=== PATIENT | male | born 1965 | race Caucasian/White ===

== ENCOUNTER 2017-02-24 09:26 | Inpatient (IN) | payer OTHER ==
[2017-02-24 10:02] VITALS: BMI 22.5
--- NOTE | 2017-02-24 13:15 | HP ---
COWS - Scale Resting Pulse: 2= [place] 101-120 Sweatin=Flushed/Facial Moisture Restless Observation: 3= Extraneous Movement Pupil Size: 2= Moderately Dilated Bone or Joint Aches: 2= Severe Diffuse Aches Runny Nose/ Eye Tearin= Runny Nose/Eyes GI Upset > 30mins: 2= Nausea/Diarrhea Tremor Observation: 2= Slight Tremor Visible Yawning Observation: 1= 1-2x During Session Anxiety or Irritability: 2=Irritable/Anxious Goose Flesh Skin: 3=Piloerection COWS Score: 23 CIWA Score - CIWA Score Nausea/Vomitin-Mild Nausea/No Vomiting Muscle Tremors: 4-Moderate,w/Arms Extend Anxiety: 3 Agitation: 4-Moderately Restless Paroxysmal Sweats: 3 Orientation: 0-Oriented Tacttile Disturbances: 0-None Auditory Disturbances: 0-None Visual Disturbances: 0-None Headache: 1-Very Mild CIWA-Ar Total Score: 16 Admission ROS BHS - HPI Chief Complaint: I am here to detox and maybe rehab. Allergies/Adverse Reactions: Allergies Allergy/AdvReac Type Severity Reaction Status Date / Time No Known Allergies Allergy Verified 02/24/17 10:37 History of Present Illness: pt is a 52yr old male with a history of heroin and alcohol dependence seeking detox for treatment. Exam Limitations: No Limitations - Ebola screening Have you traveled outside of the country in the last 21 days: No Have you had contact with anyone from an Ebola affected area: No Have you been sick,other than usual withdrawal symptoms: No Do you have a fever: No - Review of Systems Constitutional: Chills, Diaphoresis, Loss of Appetite, Night Sweats, Weight Stable, Unintentional Wgt. Loss EENT: reports: Tearing, Mouth Swelling Respiratory: reports: Cough Cardiac: reports: No Symptoms Reported GI: reports: Diarrhea, Nausea, Poor Appetite, Poor Fluid Intake, Vomiting, Indigestion : reports: No Symptoms Reported Musculoskeletal: reports: No Symptoms Reported, Back Pain, Joint Pain Integumentary: reports: Flushing, Sweating Neuro: reports: Headache, Tingling, Tremors Endocrine: reports: Excessive Sweating, Flushing, Intolerance to Cold, Intolerance to Heat Hematology: reports: No Symptoms Reported Psychiatric: reports: Judgement Intact, Mood/Affect Appropiate, Orientated x3, Agitated, Anxious Other Systems: Reviewed and Negative Patient History - Patient Medical History Hx Anemia: No Hx Asthma: No Hx Chronic Obstructive Pulmonary Disease (COPD): No Hx Cancer: No Hx Cardiac Disorders: No Hx Congestive Heart Failure: No Hx Hypertension: No Hx Hypercholesterolemia: No Hx Pacemaker: No HX Cerebrovascular Accident: No Hx Seizures: No Hx Dementia: No Hx Diabetes: No Hx Gastrointestinal Disorders: No Hx Liver Disease: No Hx Genitourinary Disorders: No Hx Sexually Transmitted Disorders: No Hx Renal Disease (ESRD): No Hx Thyroid Disease: No Hx Human Immunodeficiency Virus (HIV): No Hx Hepatitis C: No Hx Depression: No Hx Suicide Attempt: No Hx Bipolar Disorder: No Hx Schizophrenia: No Other Medical History: anxiety/insomnia - Patient Surgical History Past Surgical History: No Hx Neurologic Surgery: No Hx Cataract Extraction: No Hx Cardiac Surgery: No Hx Lung Surgery: No Hx Breast Surgery: No Hx Breast Biopsy: No Hx Abdominal Surgery: No Hx Appendectomy: No Hx Cholecystectomy: No Hx Genitourinary Surgery: No Hx Section: No Hx Orthopedic Surgery: No - PPD History Previous Implant?: Yes Documented Results: Negative w/o proof Implanted On Prior R Admission?: Yes PPD to be Administered?: Yes - Reproductive History Patient is a Female of Child Bearing Age (11 -55 yrs old): No - Smoking Cessation Smoking history: Current every day smoker Have you smoked in the past 12 months: Yes Aproximately how many cigarettes per day: 20 Cigars Per Day: 0 Hx Chewing Tobacco Use: No Initiated information on smoking cessation: Yes 'Breaking Loose' booklet given: 02/24/17 - Substance & Tx. History Hx Alcohol Use: Yes Hx Substance Use: Yes Substance Use Type: Alcohol, Cocaine, Prescribed, Tranquilizers Hx Substance Use Treatment: Yes (last detox [facility] a year ago) - Substances Abused Heroin Route: Inhalation Frequency: Daily Amount used: 10 bags Age of first use: 27 Date of Last Use: 02/23/17 Alcohol Route: Oral Frequency: Daily Amount used: beer(8-40 oz) Age of first use: 14 Date of Last Use: 02/24/17 Alprazolam (Xanax) Route: Oral Frequency: Daily Amount used: 3 stiks Age of first use: 42 Date of Last Use: 02/21/17 Benzodiazepine (Klonopin) Route: Oral Frequency: Daily Amount used: 4mg Age of first use: 38 Date of Last Use: 02/21/17 Family Disease History - Family Disease History Family Disease History: [place]: Father (), Mother () Admission Physical Exam [facility] - Vital Signs Vital Signs: Vital Signs - 24 hr 02/24/17 09:59 Temperature 97.5 F L Pulse Rate 120 H Respiratory 18 Rate Blood Pressure 150/96 - Physical General Appearance: Yes: Appropriately Dressed, Moderate Distress, Tremorous, Irritable, Sweating, Anxious HEENTM: Yes: Hearing grossly Normal, Normal Voice Respiratory: Yes: Lungs Clear, Normal Breath Sounds, No Respiratory Distress Neck: Yes: No masses,lesions,Nodules Breast: Yes: Within Normal Limits Cardiology: Yes: Regular Rhythm, Regular Rate, S1, S2 Abdominal: Yes: Normal Bowel Sounds, Non Tender Genitourinary: Yes: Within Normal Limits Back: Yes: Normal Inspection Musculoskeletal: Yes: full range of Motion Extremities: Yes: Normal Capillary Refill, Normal Inspection, Tremors Neurological: Yes: Fully Oriented, Alert, Normal Response Integumentary: Yes: Normal Color, Diaphoresis Lymphatic: Yes: Within Normal Limits - Diagnostic (1) Opioid dependence with withdrawal Current Visit: Yes Status: Chronic (2) Alcohol dependence with withdrawal Current Visit: Yes Status: Chronic Qualifiers: Complication of substance-induced condition: uncomplicated (3) Nicotine dependence Current Visit: Yes Status: Chronic Qualifiers: Nicotine product type: cigarettes Substance use status: uncomplicated Qualified Code(s): F17.210 - Nicotine dependence, cigarettes, uncomplicated; F17.210 - Nicotine dependence, cigarettes, uncomplicated (4) Psoriasis Current Visit: Yes Status: Chronic Comment: SCALP AND FACE, NO CURRENT TREATMENT Cleared for Admission [facility] - Detox or Rehab [facility] Level of Care: Medically Managed Detox Regimen/Protocol: Methadone/Librium [facility] Breath Alcohol Content Breath Alcohol Content: 0.060 Urine Pregancy Test - Result Urine Test Results: Negative- NO Line Present Urine Drug Screen - Results Drug Screen Negative: No Urine Drug Screen Results: OPI-Opiates, MTD-Methadone
[2017-02-24] MEDS ORDERED: guaiFENesin/D-METHORPHAN HB 10 ML UNIT-DOSE CUPS PO PRN (13:19)
[2017-02-24] MEDS ORDERED: chlordiazePOXIDE HCL 25 MG CAPSULE PO PRN (13:19)
[2017-02-24] MEDS ORDERED: MAGNESIUM HYDROX 2400MG/30ML ORAL SUSPENSION 30 ML CUP PO PRN (13:19)
[2017-02-24] MEDS ORDERED: MAGNESIUM CITRATE 300 ML BOTTLE PO PRN (13:19)
[2017-02-24] MEDS ORDERED: MENTHOL/PHENOL 1 EACH UD MM PRN (13:19)
[2017-02-24] MEDS ORDERED: LOPERAMIDE HCL 2 MG CAPSULE PO PRN (13:19)
[2017-02-24] MEDS ORDERED: diphenhydrAMINE HCL 50 MG CAPSULE PO PRN (13:19)
[2017-02-24] MEDS ORDERED: MAG HYDROX/AL HYDROX/SIMETH 30 ML UNIT-DOSE CUP PO PRN (13:19)
[2017-02-24] MEDS ORDERED: P-EPHED 60MG/TRIPROLIDI 2.5MG TABLET PO PRN (13:19)
[2017-02-24] MEDS ORDERED: ACETAMINOPHEN 325 MG TABLET (FP) PO PRN (13:19)
[2017-02-24] MEDS ORDERED: NICOTINE POLACRILEX 4 MG GUM BUC PRN (13:19)
[2017-02-24] MEDS ORDERED: chlordiazePOXIDE HCL 25 MG CAPSULE PO ONE (13:44)
[2017-02-24] MEDS ORDERED: METHADONE HCL 10 MG TABLET (FOR DETOX USE ONLY) PO ONE ×2 (13:45→23:00)
[2017-02-24] MEDS: FLUOCINONIDE 0.05% CREAM (15 GM TUBE) TP SCH ×3 (16:08→22:32)
[2017-02-24] MEDS: chlordiazePOXIDE HCL 25 MG CAPSULE PO SCH ×2 (17:22→22:30)
[2017-02-24 17:47] LABS: MCH 31.8 pg (25.7-33.7); MCHC 33.1 g/dl (32.0-35.9); MEAN CELL VOLUME 96.3 fl (80-96); MEAN PLT VOLUME 8.4 fl (7.5-11.1); PLATELET COUNT 275 K/MM3 (134-434); WHITE BLOOD COUNT 11.1 K/mm3 (4.0-10.0)
[2017-02-24 18:09] LABS: URINE APPEARANCE SLCLOUDY; URINE BILIRUBIN NEGATIVE (NEGATIVE); URINE BLOOD NEGATIVE (NEGATIVE); URINE COLOR YELLOW; URINE GLUCOSE (UA) NEGATIVE (NEGATIVE); URINE KETONE NEGATIVE (NEGATIVE); URINE NITRITE NEGATIVE (NEGATIVE); URINE PROTEIN NEGATIVE (NEGATIVE); URINE UROBILINOGEN NEGATIVE mg/dL (0.2-1.0)
[2017-02-24 18:14] LABS: ALBUMIN 4.5 g/dl (3.4-5.0); ANION GAP 15 (8-16); CALCIUM 9.2 mg/dL (8.5-10.1); CO2 23 mmol/L (21-32); GLUCOSE,RANDOM 91 mg/dL (74-106); SGOT/AST 55 U/L (15-37); SGPT/ALT 33 U/L (12-78)
[2017-02-24 18:16] LABS: ALK PHOS 89 U/L (45-117); TOT PROT 8.2 g/dl (6.4-8.2)
[2017-02-24 21:25] LABS: URINE LEUK ESTERASE Negative (NEGATIVE)
[2017-02-24] MEDS: THIAMINE HCL 100 MG TABLET (FP) PO SCH (22:30)
[2017-02-24] MEDS: cloNIDine HCL 0.1 MG TABLET PO SCH (22:31)
[2017-02-24] MEDS: IBUPROFEN 400 MG TABLET (FP) PO PRN (23:35)
[2017-02-24] MEDS ORDERED: LIDOCAINE HCL 5% TOP OINTMENT 50 GM TUBE TP ONE (23:48)
--- NOTE | 2017-02-25 00:01 | PN ---
BHS Progress Note Note: Pt. spilled hot water on his left hand. Pt. was assessed on the unit. Left thumb and inner aspect is reddened. Skin intact with no blisters noted. Pt. rates pain 9/10. Plan: clean area with cool water and soap Apply ice Topical lidocaine IBU prn.
[2017-02-25] MEDS: chlordiazePOXIDE HCL 25 MG CAPSULE PO SCH ×4 (05:28→22:27)
--- NOTE | 2017-02-25 09:51 | EKG ---
Test Reason : Blood Pressure : / mmHG Vent. Rate : 101 BPM Atrial Rate : 101 BPM P-R Int : 124 ms QRS Dur : 082 ms QT Int : 334 ms P-R-T Axes : 041 067 038 degrees QTc Int : 433 ms SINUS TACHYCARDIA NO PREVIOUS ECGS AVAILABLE Confirmed by MICA MCLEAN MD ([id number]) on 02/25/2017 9:51:30 AM Referred By: James Nye Confirmed By:MICA MCLEAN MD
[2017-02-25] MEDS ORDERED: METHADONE HCL 10 MG TABLET (FOR DETOX USE ONLY) PO SCH (10:00)
[2017-02-25] MEDS: cloNIDine HCL 0.1 MG TABLET PO SCH ×2 (10:14→22:26)
[2017-02-25] MEDS: PRENATAL VITAMINS W/ FOLIC ACID TABLET (FP) PO SCH (10:14)
[2017-02-25] MEDS: FLUOCINONIDE 0.05% CREAM (15 GM TUBE) TP SCH ×4 (10:14→22:27)
[2017-02-25] MEDS: NICOTINE 21 MG/24 HOURS TOPICAL PATCH TD SCH (10:14)
[2017-02-25] MEDS: RANITIDINE HCL 150 MG TABLET (FP) PO SCH ×2 (11:09→22:26)
--- NOTE | 2017-02-25 11:52 | PN ---
S CIWA - CIWA Score Nausea/Vomitin-No Nausea/No Vomiting Muscle Tremors: 4-Moderate,w/Arms Extend Anxiety: 3 Agitation: 4-Moderately Restless Paroxysmal Sweats: 1-Minimal Palms Moist Orientation: 0-Oriented Tacttile Disturbances: 3-Moderate Itch/Numb/Burn Auditory Disturbances: 0-None Visual Disturbances: 0-None Headache: 0-None Present CIWA-Ar Total Score: 15 BHS COWS - Scale Resting Pulse: 1= [place] 81-100 Sweatin= Chills/Flushing Restless Observation: 3= Extraneous Movement Pupil Size: 0= Normal to Room Light Bone or Joint Aches: 4=Acute Joint/Muscle Pain Runny Nose/ Eye Tearin= Nasal Congestion GI Upset > 30mins: 1= Stomach Cramp Tremor Observation of Outstretched Hands: 1= Tremor [place], Not Seen Yawning Observation: 2= >3x During Session Anxiety or Irritability: 2=Irritable/Anxious Goose Flesh Skin: 0=Smooth Skin COWS Score: 16 [facility] Progress Note (SOAP) Subjective: ANXIETY,TREMORS,SWEATS,HEARTBURN-HX GERD. Objective: 02/25/17 11:50 Vital Signs Temperature 97.7 F 02/25/17 09:55 Pulse Rate 92 H 02/25/17 09:55 Respiratory Rate 18 02/25/17 09:55 Blood Pressure 94/59 02/25/17 09:55 O2 Sat by Pulse Oximetry (%) Laboratory Last Values WBC 11.1 K/mm3 (4.0-10.0) H D 02/24/17 13:00 RBC 4.36 M/mm3 (4.00-5.60) 02/24/17 13:00 Hgb 13.9 GM/dL (11.7-16.9) 02/24/17 13:00 Hct 41.9 % (35.4-49) 02/24/17 13:00 MCV 96.3 fl (80-96) H 02/24/17 13:00 MCH 31.8 pg (25.7-33.7) 02/24/17 13:00 MCHC 33.1 g/dl (32.0-35.9) 02/24/17 13:00 RDW 15.0 % (11.9-15.9) 02/24/17 13:00 Plt Count 275 K/MM3 (134-434) D 02/24/17 13:00 MPV 8.4 fl (7.5-11.1) 02/24/17 13:00 Sodium 132 mmol/L (136-145) L 02/24/17 13:00 Potassium 3.4 mmol/L (3.5-5.1) L 02/24/17 13:00 Chloride 94 mmol/L (98-107) L 02/24/17 13:00 Carbon Dioxide 23 mmol/L (21-32) 02/24/17 13:00 Anion Gap 15 (8-16) 02/24/17 13:00 BUN 10 mg/dL (7-18) D 02/24/17 13:00 Creatinine 1.0 mg/dL (0.7-1.3) D 02/24/17 13:00 Creat Clearance w eGFR > 60 (>60) 02/24/17 13:00 Random Glucose 91 mg/dL (74-106) 02/24/17 13:00 Calcium 9.2 mg/dL (8.5-10.1) 02/24/17 13:00 Total Bilirubin 1.0 mg/dL (0.2-1.0) 02/24/17 13:00 AST 55 U/L (15-37) H D 02/24/17 13:00 ALT 33 U/L (12-78) D 02/24/17 13:00 Alkaline Phosphatase 89 U/L (45-117) D 02/24/17 13:00 Total Protein 8.2 g/dl (6.4-8.2) D 02/24/17 13:00 Albumin 4.5 g/dl (3.4-5.0) D 02/24/17 13:00 Urine Color Yellow 02/24/17 15:00 Urine Appearance Slcloudy 02/24/17 15:00 Urine pH 5.0 (5.0-8.0) 02/24/17 15:00 Ur Specific [place] 1.025 (1.005-1.025) 02/24/17 15:00 Urine Protein Negative (NEGATIVE) 02/24/17 15:00 Urine Glucose (UA) Negative (NEGATIVE) 02/24/17 15:00 Urine Ketones Negative (NEGATIVE) 02/24/17 15:00 Urine Blood Negative (NEGATIVE) 02/24/17 15:00 Urine Nitrite Negative (NEGATIVE) 02/24/17 15:00 Urine Bilirubin Negative (NEGATIVE) 02/24/17 15:00 Urine Urobilinogen Negative mg/dL (0.2-1.0) 02/24/17 15:00 Ur Leukocyte Esterase Negative (NEGATIVE) 02/24/17 15:00 RPR Titer Nonreactive (NONREACTIVE) 02/24/17 13:00 K+ = 3.4 Assessment: 02/25/17 11:51 WITHDRAWAL SX BORDERLINE HYPOKALEMIA Plan: CONTINUE DETOX
[2017-02-25] MEDS ORDERED: POTASSIUM CHLORIDE TABS 20 MEQ TABLET.ER (FP) PO ONE (12:16)
--- NOTE | 2017-02-25 14:06 | CONSULT ---
[facility] Psychiatric Consult - Data Date of interview: 02/25/17 Admission source: [facility] Identifying data: Another admission to [facility] for this 52 y/o male seeking detox treatment on for alcohol,heroin and benzodiazepine dependence.Patient is single without children,domiciled and supported on odd jobs. Substance Abuse History: Confirmed by patient. Smoking Cessation. Smoking history: Current every day smoker. Have you smoked in the past 12 months: Yes. Aproximately how many cigarettes per day: 20. Cigars Per Day: 0. Hx Chewing Tobacco Use: No. Initiated information on smoking cessation: Yes. 'Breaking Loose' booklet given: 02/24/17. - Substance & Tx. History. Hx Alcohol Use: Yes. Hx Substance Use: Yes. Substance Use Type: Alcohol, Cocaine, Prescribed, Tranquilizers. Hx Substance Use Treatment: Yes (last detox [facility] a year ago) . - Substances Abused. Heroin. Route: Inhalation. Frequency: Daily. Amount used: 10 bags. Age of first use: 27. Date of Last Use: 02/23/17. Alcohol. Route: Oral. Frequency: Daily. Amount used: beer(8-40 oz). Age of first use: 14. Date of Last Use: 02/24/17. Alprazolam (Xanax). Route: Oral. Frequency: Daily. Amount used: 3 stiks. Age of first use: 42. Date of Last Use: 02/21/17. Benzodiazepine (Klonopin). Route: Oral. Frequency: Daily. Amount used: 4mg. Age of first use: 38. Date of Last Use: 02/21/17 Medical History: Patient endorses good general health.In treatment for psoriasis. Psychiatric History: Patient denies history of psychiatric hospitalizations.Mr Dougherty indicates that he used to be in outpatient treatment at the [facility].No current OPD care.patient denies history of suicide attempts. Physical/Sexual Abuse/Trauma History: Patient denies. Additional Comment: Urine Drug Screen Results: OPI-Opiates, MTD-Methadone.Noted. Mental Status Exam - Mental Status Exam Alert and Oriented to: Time, Place, Person Cognitive Function: Good Patient Appearance: Well Groomed Mood: Hopeful, Euthymic Affect: Appropriate, Normal Range Patient Behavior: Cooperative Speech Pattern: Clear Voice Loudness: Normal Thought Process: Intact, Goal Oriented Thought Disorder: Not Present Hallucinations: Denies Suicidal Ideation: Denies Homicidal Ideation: Denies Insight/Judgement: Poor Sleep: Poorly, Difficulty falling asleep Appetite: Good Muscle strength/Tone: Normal Gait/Station: Normal Psychiatric Findings - Problem List ([place] 1, 2,3) (1) Alcohol dependence with withdrawal Current Visit: Yes Status: Acute Qualifiers: Complication of substance-induced condition: uncomplicated Qualified Code(s): F10.230 - Alcohol dependence with withdrawal, uncomplicated; F10.230 - Alcohol dependence with withdrawal, uncomplicated; F10.230 - Alcohol dependence with withdrawal, uncomplicated (2) Opioid dependence with withdrawal Current Visit: Yes Status: Acute (3) Nicotine dependence Current Visit: Yes Status: Acute Qualifiers: Nicotine product type: cigarettes Substance use status: in withdrawal Qualified Code(s): F17.213 - Nicotine dependence, cigarettes, with withdrawal; F17.213 - Nicotine dependence, cigarettes, with withdrawal (4) Psoriasis Current Visit: Yes Status: Chronic Comment: SCALP AND FACE, NO CURRENT TREATMENT (5) Insomnia Current Visit: Yes Status: Acute - Initial Treatment Plan Initial Treatment Plan: Psychoeducation.Detoxification.Ambien 10 mg po hs.Patient is made aware of potential for parasomnias.He agrees with this careplan.Observation.
[2017-02-25] MEDS: IBUPROFEN 400 MG TABLET (FP) PO PRN (17:36)
[2017-02-25] MEDS: THIAMINE HCL 100 MG TABLET (FP) PO SCH (22:26)
[2017-02-26] MEDS: chlordiazePOXIDE HCL 25 MG CAPSULE PO SCH ×2 (05:52→10:39)
[2017-02-26] MEDS ORDERED: POTASSIUM CHLORIDE TABS 10 MEQ TABLET.ER (FP) PO SCH (10:00)
[2017-02-26] MEDS: FLUOCINONIDE 0.05% CREAM (15 GM TUBE) TP SCH ×4 (10:34→22:39)
[2017-02-26] MEDS: NICOTINE 21 MG/24 HOURS TOPICAL PATCH TD SCH (10:34)
[2017-02-26] MEDS: METHADONE HCL 5 MG TABLET (FOR DETOX USE ONLY) PO SCH (10:37)
[2017-02-26] MEDS: cloNIDine HCL 0.1 MG TABLET PO SCH ×2 (10:39→22:38)
[2017-02-26] MEDS: PRENATAL VITAMINS W/ FOLIC ACID TABLET (FP) PO SCH (10:40)
[2017-02-26] MEDS: RANITIDINE HCL 150 MG TABLET (FP) PO SCH ×2 (10:40→22:38)
[2017-02-26] MEDS: CYCLOBENZAPRINE HCL 10 MG TABLET (FP) PO PRN ×2 (11:25→17:31)
[2017-02-26] MEDS: POTASSIUM CHLORIDE TABS 20 MEQ TABLET.ER (FP) PO SCH (12:39)
[2017-02-26] MEDS: IBUPROFEN 400 MG TABLET (FP) PO PRN (14:41)
--- NOTE | 2017-02-26 15:13 | PN ---
S CIWA - CIWA Score Nausea/Vomitin-No Nausea/No Vomiting Muscle Tremors: 4-Moderate,w/Arms Extend Anxiety: 2 Agitation: 2 Paroxysmal Sweats: 3 Orientation: 0-Oriented Tacttile Disturbances: 2-Mild Itch/Numbness/Burn Auditory Disturbances: 2-Mild Harshness/Frighten Visual Disturbances: 0-None Headache: 3-Moderate CIWA-Ar Total Score: 18 BHS COWS - Scale Resting Pulse: 1= [place] 81-100 Sweatin= Chills/Flushing Restless Observation: 0= Sits Still Pupil Size: 0= Normal to Room Light Bone or Joint Aches: 2= Severe Diffuse Aches Runny Nose/ Eye Tearin= None GI Upset > 30mins: 1= Stomach Cramp Tremor Observation of Outstretched Hands: 2= Slight Tremor Visible Yawning Observation: 0= None Anxiety or Irritability: 2=Irritable/Anxious Goose Flesh Skin: 3=Piloerection COWS Score: 12 S Progress Note (SOAP) Subjective: Tremors, Stomach Cramping, H/A, Chills, Sweating. Objective: PT. A & O X 3, OBSERVED AMBULATING ON UNIT. NO ACUTE DISTRESS. 02/26/17 15:10 Vital Signs Temperature 97.7 F 02/26/17 14:56 Pulse Rate 88 02/26/17 14:56 Respiratory Rate 18 02/26/17 14:56 Blood Pressure 118/72 02/26/17 14:56 O2 Sat by Pulse Oximetry (%) Laboratory Tests 02/24/17 02/24/17 02/24/17 13:00 13:00 13:00 WBC 11.1 H D RBC 4.36 Hgb 13.9 Hct 41.9 MCV 96.3 H MCH 31.8 MCHC 33.1 RDW 15.0 Plt Count 275 D MPV 8.4 Sodium 132 L Potassium 3.4 L Chloride 94 L Carbon Dioxide 23 Anion Gap 15 BUN 10 D Creatinine 1.0 D Creat Clearance w eGFR > 60 Random Glucose 91 Calcium 9.2 Total Bilirubin 1.0 AST 55 H D ALT 33 D Alkaline Phosphatase 89 D Total Protein 8.2 D Albumin 4.5 D Urine Color Urine Appearance Urine pH Ur Specific [place] Urine Protein Urine Glucose (UA) Urine Ketones Urine Blood Urine Nitrite Urine Bilirubin Urine Urobilinogen Ur Leukocyte Esterase RPR Titer Nonreactive 02/24/17 15:00 WBC RBC Hgb Hct MCV MCH MCHC RDW Plt Count MPV Sodium Potassium Chloride Carbon Dioxide Anion Gap BUN Creatinine Creat Clearance w eGFR Random Glucose Calcium Total Bilirubin AST ALT Alkaline Phosphatase Total Protein Albumin Urine Color Yellow Urine Appearance Slcloudy Urine pH 5.0 Ur Specific [place] 1.025 Urine Protein Negative Urine Glucose (UA) Negative Urine Ketones Negative Urine Blood Negative Urine Nitrite Negative Urine Bilirubin Negative Urine Urobilinogen Negative Ur Leukocyte Esterase Negative RPR Titer LABS NOTED. Assessment: 02/26/17 15:10 WITHDRAWAL SYMPTOMS. Plan: CONTINUE DETOX. PRN FLEXERIL FOR BODY ACHES / MUSCLE SPASMS.
[2017-02-26] MEDS: chlordiazePOXIDE 5 MG CAPSULE PO SCH ×2 (17:29→22:39)
[2017-02-26] MEDS: THIAMINE HCL 100 MG TABLET (FP) PO SCH (22:38)
[2017-02-26] MEDS: ZOLPIDEM TARTRATE 10 MG TABLET (PARK CARE ONLY) PO PRN (22:38)
[2017-02-27] MEDS: chlordiazePOXIDE 5 MG CAPSULE PO SCH ×2 (05:07→10:15)
[2017-02-27] MEDS: CYCLOBENZAPRINE HCL 10 MG TABLET (FP) PO PRN ×4 (05:08→22:24)
[2017-02-27] MEDS: FLUOCINONIDE 0.05% CREAM (15 GM TUBE) TP SCH ×4 (10:14→23:07)
[2017-02-27] MEDS: METHADONE HCL 5 MG TABLET (FOR DETOX USE ONLY) PO SCH (10:14)
[2017-02-27] MEDS: RANITIDINE HCL 150 MG TABLET (FP) PO SCH ×2 (10:14→22:23)
[2017-02-27] MEDS: POTASSIUM CHLORIDE TABS 20 MEQ TABLET.ER (FP) PO SCH (10:14)
[2017-02-27] MEDS: NICOTINE 21 MG/24 HOURS TOPICAL PATCH TD SCH (10:15)
[2017-02-27] MEDS: cloNIDine HCL 0.1 MG TABLET PO SCH ×2 (10:15→22:44)
[2017-02-27] MEDS: PRENATAL VITAMINS W/ FOLIC ACID TABLET (FP) PO SCH (10:18)
[2017-02-27] MEDS: IBUPROFEN 400 MG TABLET (FP) PO PRN (10:19)
--- NOTE | 2017-02-27 16:55 | PN ---
BHS Progress Note (SOAP) Subjective: Sweating,interrupted sleep,restless. Objective: 02/27/17 16:54 Vital Signs - 8 hr 02/27/17 02/27/17 09:20 13:20 Temperature 96.4 F L 97.1 F L Pulse Rate 78 85 Respiratory 18 18 Rate Blood Pressure 106/63 93/66 Laboratory Last Values WBC 11.1 K/mm3 (4.0-10.0) H D 02/24/17 13:00 RBC 4.36 M/mm3 (4.00-5.60) 02/24/17 13:00 Hgb 13.9 GM/dL (11.7-16.9) 02/24/17 13:00 Hct 41.9 % (35.4-49) 02/24/17 13:00 MCV 96.3 fl (80-96) H 02/24/17 13:00 MCH 31.8 pg (25.7-33.7) 02/24/17 13:00 MCHC 33.1 g/dl (32.0-35.9) 02/24/17 13:00 RDW 15.0 % (11.9-15.9) 02/24/17 13:00 Plt Count 275 K/MM3 (134-434) D 02/24/17 13:00 MPV 8.4 fl (7.5-11.1) 02/24/17 13:00 Sodium 132 mmol/L (136-145) L 02/24/17 13:00 Potassium 3.4 mmol/L (3.5-5.1) L 02/24/17 13:00 Chloride 94 mmol/L (98-107) L 02/24/17 13:00 Carbon Dioxide 23 mmol/L (21-32) 02/24/17 13:00 Anion Gap 15 (8-16) 02/24/17 13:00 BUN 10 mg/dL (7-18) D 02/24/17 13:00 Creatinine 1.0 mg/dL (0.7-1.3) D 02/24/17 13:00 Creat Clearance w eGFR > 60 (>60) 02/24/17 13:00 Random Glucose 91 mg/dL (74-106) 02/24/17 13:00 Calcium 9.2 mg/dL (8.5-10.1) 02/24/17 13:00 Total Bilirubin 1.0 mg/dL (0.2-1.0) 02/24/17 13:00 AST 55 U/L (15-37) H D 02/24/17 13:00 ALT 33 U/L (12-78) D 02/24/17 13:00 Alkaline Phosphatase 89 U/L (45-117) D 02/24/17 13:00 Total Protein 8.2 g/dl (6.4-8.2) D 02/24/17 13:00 Albumin 4.5 g/dl (3.4-5.0) D 02/24/17 13:00 Urine Color Yellow 02/24/17 15:00 Urine Appearance Slcloudy 02/24/17 15:00 Urine pH 5.0 (5.0-8.0) 02/24/17 15:00 Ur Specific [place] 1.025 (1.005-1.025) 02/24/17 15:00 Urine Protein Negative (NEGATIVE) 02/24/17 15:00 Urine Glucose (UA) Negative (NEGATIVE) 02/24/17 15:00 Urine Ketones Negative (NEGATIVE) 02/24/17 15:00 Urine Blood Negative (NEGATIVE) 02/24/17 15:00 Urine Nitrite Negative (NEGATIVE) 02/24/17 15:00 Urine Bilirubin Negative (NEGATIVE) 02/24/17 15:00 Urine Urobilinogen Negative mg/dL (0.2-1.0) 02/24/17 15:00 Ur Leukocyte Esterase Negative (NEGATIVE) 02/24/17 15:00 RPR Titer Nonreactive (NONREACTIVE) 02/24/17 13:00 labs noted Assessment: 02/27/17 16:55 Withdrawal sx. Plan: Continue detox
[2017-02-27] MEDS: chlordiazePOXIDE HCL 10 MG CAPSULE PO SCH ×2 (17:43→22:22)
[2017-02-27] MEDS: ZOLPIDEM TARTRATE 10 MG TABLET (PARK CARE ONLY) PO PRN (22:22)
[2017-02-27] MEDS: THIAMINE HCL 100 MG TABLET (FP) PO SCH (22:23)
[2017-02-28] MEDS: chlordiazePOXIDE HCL 10 MG CAPSULE PO SCH ×2 (05:36→10:23)
[2017-02-28] MEDS: CYCLOBENZAPRINE HCL 10 MG TABLET (FP) PO PRN ×3 (06:30→22:11)
[2017-02-28] MEDS ORDERED: METHADONE HCL 10 MG TABLET (FOR DETOX USE ONLY) PO SCH (10:00)
--- NOTE | 2017-02-28 10:07 | PN ---
BHS Progress Note (SOAP) Subjective: nausea, sweats, interrupted sleep, anxiety, tremors Objective: 02/28/17 10:06 Vital Signs - 8 hr 02/28/17 02/28/17 03:30 06:20 Temperature 96.4 F L Pulse Rate 75 Respiratory 18 18 Rate Blood Pressure 98/61 Laboratory Tests 02/24/17 02/24/17 02/24/17 13:00 13:00 13:00 WBC 11.1 H D RBC 4.36 Hgb 13.9 Hct 41.9 MCV 96.3 H MCH 31.8 MCHC 33.1 RDW 15.0 Plt Count 275 D MPV 8.4 Sodium 132 L Potassium 3.4 L Chloride 94 L Carbon Dioxide 23 Anion Gap 15 BUN 10 D Creatinine 1.0 D Creat Clearance w eGFR > 60 Random Glucose 91 Calcium 9.2 Total Bilirubin 1.0 AST 55 H D ALT 33 D Alkaline Phosphatase 89 D Total Protein 8.2 D Albumin 4.5 D Urine Color Urine Appearance Urine pH Ur Specific [place] Urine Protein Urine Glucose (UA) Urine Ketones Urine Blood Urine Nitrite Urine Bilirubin Urine Urobilinogen Ur Leukocyte Esterase RPR Titer Nonreactive 02/24/17 15:00 WBC RBC Hgb Hct MCV MCH MCHC RDW Plt Count MPV Sodium Potassium Chloride Carbon Dioxide Anion Gap BUN Creatinine Creat Clearance w eGFR Random Glucose Calcium Total Bilirubin AST ALT Alkaline Phosphatase Total Protein Albumin Urine Color Yellow Urine Appearance Slcloudy Urine pH 5.0 Ur Specific [place] 1.025 Urine Protein Negative Urine Glucose (UA) Negative Urine Ketones Negative Urine Blood Negative Urine Nitrite Negative Urine Bilirubin Negative Urine Urobilinogen Negative Ur Leukocyte Esterase Negative RPR Titer Assessment: 02/28/17 10:06 withdrawal sx,hypokalemia, supplement k Plan: cont detox, fluids, encourage ambulation, k
[2017-02-28] MEDS: FLUOCINONIDE 0.05% CREAM (15 GM TUBE) TP SCH ×4 (10:19→22:11)
[2017-02-28] MEDS: NICOTINE 21 MG/24 HOURS TOPICAL PATCH TD SCH (10:20)
[2017-02-28] MEDS: POTASSIUM CHLORIDE TABS 20 MEQ TABLET.ER (FP) PO SCH (10:20)
[2017-02-28] MEDS: cloNIDine HCL 0.1 MG TABLET PO SCH ×2 (10:20→22:11)
[2017-02-28] MEDS: PRENATAL VITAMINS W/ FOLIC ACID TABLET (FP) PO SCH (10:20)
[2017-02-28] MEDS: RANITIDINE HCL 150 MG TABLET (FP) PO SCH ×2 (10:59→22:11)
[2017-02-28] MEDS: hydrOXYzine PAMOATE 50 MG CAPSULE (FP) PO PRN (17:55)
[2017-02-28] MEDS: THIAMINE HCL 100 MG TABLET (FP) PO SCH (22:11)
[2017-03-01] MEDS: CYCLOBENZAPRINE HCL 10 MG TABLET (FP) PO PRN (05:40)
[2017-03-01] MEDS ORDERED: METHADONE HCL 5 MG TABLET (FOR DETOX USE ONLY) PO SCH (06:00)
[2017-03-01 10:20] VITALS: BP 102/59; PULSE 58; TEMP 98.2
[2017-03-01] MEDS: FLUOCINONIDE 0.05% CREAM (15 GM TUBE) TP SCH (10:22)
[2017-03-01] MEDS: RANITIDINE HCL 150 MG TABLET (FP) PO SCH (10:22)
[2017-03-01] MEDS: PRENATAL VITAMINS W/ FOLIC ACID TABLET (FP) PO SCH (10:22)
[2017-03-01] MEDS: cloNIDine HCL 0.1 MG TABLET PO SCH (10:22)
[2017-03-01] MEDS: hydrOXYzine PAMOATE 50 MG CAPSULE (FP) PO PRN (10:22)
[2017-03-01] MEDS: POTASSIUM CHLORIDE TABS 20 MEQ TABLET.ER (FP) PO SCH (10:22)
[2017-03-01] MEDS: NICOTINE 21 MG/24 HOURS TOPICAL PATCH TD SCH (10:22)
--- NOTE | 2017-03-01 10:27 | DS ---
[facility] Detox Discharge Summary Admission Date: 02/24/17 Discharge Date: 03/01/17 - History Present History: Alcohol Dependence, Opioid Dependence Additional Comments: DETOX COMPLETED. ALERT O X 3. NAD. FOLLOW UP WITH PCP AT [facility]. Pertinent Past History: PSORIASIS INSOMNIA - Physical Exam Results Vital Signs: Vital Signs Temperature 98.2 F 03/01/17 10:19 Pulse Rate 58 L 03/01/17 10:19 Respiratory Rate 18 03/01/17 10:19 Blood Pressure 102/59 03/01/17 10:19 O2 Sat by Pulse Oximetry (%) Pertinent Admission Physical Exam Findings: WITHDRAWAL SX Laboratory Last Values WBC 11.1 K/mm3 (4.0-10.0) H D 02/24/17 13:00 RBC 4.36 M/mm3 (4.00-5.60) 02/24/17 13:00 Hgb 13.9 GM/dL (11.7-16.9) 02/24/17 13:00 Hct 41.9 % (35.4-49) 02/24/17 13:00 MCV 96.3 fl (80-96) H 02/24/17 13:00 MCH 31.8 pg (25.7-33.7) 02/24/17 13:00 MCHC 33.1 g/dl (32.0-35.9) 02/24/17 13:00 RDW 15.0 % (11.9-15.9) 02/24/17 13:00 Plt Count 275 K/MM3 (134-434) D 02/24/17 13:00 MPV 8.4 fl (7.5-11.1) 02/24/17 13:00 Sodium 132 mmol/L (136-145) L 02/24/17 13:00 Potassium 3.4 mmol/L (3.5-5.1) L 02/24/17 13:00 Chloride 94 mmol/L (98-107) L 02/24/17 13:00 Carbon Dioxide 23 mmol/L (21-32) 02/24/17 13:00 Anion Gap 15 (8-16) 02/24/17 13:00 BUN 10 mg/dL (7-18) D 02/24/17 13:00 Creatinine 1.0 mg/dL (0.7-1.3) D 02/24/17 13:00 Creat Clearance w eGFR > 60 (>60) 02/24/17 13:00 Random Glucose 91 mg/dL (74-106) 02/24/17 13:00 Calcium 9.2 mg/dL (8.5-10.1) 02/24/17 13:00 Total Bilirubin 1.0 mg/dL (0.2-1.0) 02/24/17 13:00 AST 55 U/L (15-37) H D 02/24/17 13:00 ALT 33 U/L (12-78) D 02/24/17 13:00 Alkaline Phosphatase 89 U/L (45-117) D 02/24/17 13:00 Total Protein 8.2 g/dl (6.4-8.2) D 02/24/17 13:00 Albumin 4.5 g/dl (3.4-5.0) D 02/24/17 13:00 Urine Color Yellow 02/24/17 15:00 Urine Appearance Slcloudy 02/24/17 15:00 Urine pH 5.0 (5.0-8.0) 02/24/17 15:00 Ur Specific [place] 1.025 (1.005-1.025) 02/24/17 15:00 Urine Protein Negative (NEGATIVE) 02/24/17 15:00 Urine Glucose (UA) Negative (NEGATIVE) 02/24/17 15:00 Urine Ketones Negative (NEGATIVE) 02/24/17 15:00 Urine Blood Negative (NEGATIVE) 02/24/17 15:00 Urine Nitrite Negative (NEGATIVE) 02/24/17 15:00 Urine Bilirubin Negative (NEGATIVE) 02/24/17 15:00 Urine Urobilinogen Negative mg/dL (0.2-1.0) 02/24/17 15:00 Ur Leukocyte Esterase Negative (NEGATIVE) 02/24/17 15:00 RPR Titer Nonreactive (NONREACTIVE) 02/24/17 13:00 - Treatment Hospital Course: Detox Protocol Followed, Detoxed Safely, Responded well, Discharged Condition Good, Rehab Referral Accepted Patient has Accepted a Rehab Referral to: [facility] - Medication Discharge Medications: Ambulatory Orders NK [No Known Home Medication] 04/02/16 - Diagnosis (1) Alcohol dependence with withdrawal Status: Acute Qualifiers: Complication of substance-induced condition: uncomplicated Qualified Code(s): F10.230 - Alcohol dependence with withdrawal, uncomplicated; F10.230 - Alcohol dependence with withdrawal, uncomplicated; F10.230 - Alcohol dependence with withdrawal, uncomplicated (2) Nicotine dependence Status: Acute Qualifiers: Nicotine product type: cigarettes Substance use status: in withdrawal Qualified Code(s): F17.213 - Nicotine dependence, cigarettes, with withdrawal; F17.213 - Nicotine dependence, cigarettes, with withdrawal (3) Opioid dependence with withdrawal Status: Acute (4) Psoriasis Status: Chronic - AMA Did Patient Leave Against Medical Advice: No
== END 2017-03-01 11:22 | disposition home or self-care (01) | DRG 773 ==
LOC: YASAS 09:26 → Y3N 13:35
PROVIDERS: ADMIT Internal Medicine; ATTEND Internal Medicine
PROC: HZ2ZZZZ Detoxification Services for Substance Abuse Treatment (ICD-10-PCS; principal; 2017-02-24)
DX: F11.23 Opioid dependence with withdrawal (principal); F10.230 Alcohol dependence with withdrawal, uncomplicated; F17.213 Nicotine dependence, cigarettes, with withdrawal; L40.9 Psoriasis, unspecified; E87.6 Hypokalemia; G47.00 Insomnia, unspecified; T23.002A Burn of unspecified degree of left hand, unspecified site, initial encounter; T31.0 Burns involving less than 10% of body surface; X12.XXXA Contact with other hot fluids, initial encounter; Y93.9 Activity, unspecified; Y92.239 Unspecified place in hospital as the place of occurrence of the external cause; Y99.9 Unspecified external cause status
CPT/HCPCS: 36415; 80053; 81003; 85027; 86593; 93005; 93010

== ENCOUNTER 2017-09-03 11:14 | Inpatient (IN) | payer OTHER ==
[2017-09-03 11:23] VITALS: BMI 20.5
--- NOTE | 2017-09-03 12:32 | HP ---
COWS - Scale Resting Pulse: 2= [place] 101-120 Sweatin= Chills/Flushing Restless Observation: 1= Difficult to Sit Still Pupil Size: 1= Pupils >than Normal Bone or Joint Aches: 1= Mild Discomfort Runny Nose/ Eye Tearin= Nasal Congestion GI Upset > 30mins: 1= Stomach Cramp Tremor Observation: 1= Tremor Barry, Not Seen Yawning Observation: 1= 1-2x During Session Anxiety or Irritability: 1=Feels Anxious/Irritable Goose Flesh Skin: 3=Piloerection COWS Score: 14 CIWA Score - CIWA Score Nausea/Vomitin-Mild Nausea/No Vomiting Muscle Tremors: 4-Moderate,w/Arms Extend Anxiety: 4-Mod. Anxious/Guarded Agitation: 1-Slight > Activity Paroxysmal Sweats: 1-Minimal Palms Moist Orientation: 0-Oriented Tacttile Disturbances: 1-Very Mild Itch/Numbness Auditory Disturbances: 1-Very Mild Visual Disturbances: 1-Very Mild Sensitivity Headache: 2-Mild CIWA-Ar Total Score: 16 Admission ROS BHS - HPI Chief Complaint: I just can't keep away on my own, I'm consumed by it, I need help Allergies/Adverse Reactions: Allergies Allergy/AdvReac Type Severity Reaction Status Date / Time No Known Allergies Allergy Verified 09/03/17 13:22 History of Present Illness: 52 yo gentleman here for detox from opiates and alcohol. This is one of several admissions for treatment. No seizures but does have black outs. States he tried suboxone but it made him feel jittery, was on methadone program a ' long time ago'. Exam Limitations: Clinical Condition - Ebola screening Have you traveled outside of the country in the last 21 days: No (N) Have you had contact with anyone from an Ebola affected area: No Have you been sick,other than usual withdrawal symptoms: No Do you have a fever: No - Review of Systems Constitutional: Loss of Appetite, Malaise, Night Sweats, Changes in sleep, Weakness, Unintentional Wgt. Loss EENT: reports: Blurred Vision, Nose Congestion Respiratory: reports: No Symptoms reported Cardiac: reports: No Symptoms Reported GI: reports: Nausea, Poor Appetite, Poor Fluid Intake : reports: Frequency Musculoskeletal: reports: Back Pain, Muscle Weakness Integumentary: reports: Dryness Neuro: reports: Headache, Tremors Endocrine: reports: No Symptoms Reported Hematology: reports: No Symptoms Reported Psychiatric: reports: Judgement Intact, Mood/Affect Appropiate, Anxious Other Systems: Reviewed and Negative Patient History - Patient Medical History Hx Anemia: No Hx Asthma: No Hx Chronic Obstructive Pulmonary Disease (COPD): No Hx Cancer: No Hx Cardiac Disorders: No Hx Congestive Heart Failure: No Hx Hypertension: No Hx Hypercholesterolemia: No Hx Pacemaker: No HX Cerebrovascular Accident: No Hx Seizures: No Hx Dementia: No Hx Diabetes: No Hx Gastrointestinal Disorders: No Hx Liver Disease: No Hx Genitourinary Disorders: No Hx Sexually Transmitted Disorders: No Hx Renal Disease (ESRD): No Hx Thyroid Disease: No Hx Human Immunodeficiency Virus (HIV): No Hx Hepatitis C: No Hx Depression: Yes (no meds) Hx Suicide Attempt: No Hx Bipolar Disorder: No Hx Schizophrenia: No - Patient Surgical History Past Surgical History: No Hx Neurologic Surgery: No Hx Cataract Extraction: No Hx Cardiac Surgery: No Hx Lung Surgery: No Hx Breast Surgery: No Hx Breast Biopsy: No Hx Abdominal Surgery: No Hx Appendectomy: No Hx Cholecystectomy: No Hx Genitourinary Surgery: No Hx Section: No Hx Orthopedic Surgery: No - PPD History Date: 02/26/17 - Reproductive History Patient is a Female of Child Bearing Age (11 -55 yrs old): No (male) - Smoking Cessation Smoking history: Current every day smoker Have you smoked in the past 12 months: Yes Aproximately how many cigarettes per day: 20 Cigars Per Day: 0 Hx Chewing Tobacco Use: No Initiated information on smoking cessation: Yes 'Breaking Loose' booklet given: 09/03/17 (give on floor) - Substance & Tx. History Hx Alcohol Use: Yes Hx Substance Use: Yes Substance Use Type: Alcohol, Heroin Hx Substance Use Treatment: Yes (detox, rehab, hx methadone, suboxone) - Substances Abused alcohol Route: Oral Frequency: Daily Amount used: seven 24oz beers Age of first use: 16 Date of Last Use: 09/03/17 heroin Route: Inhalation Frequency: Daily Amount used: 1 bundle Age of first use: 25 Date of Last Use: 09/02/17 xanax Route: Oral Frequency: 1-2 times per week Amount used: three 4mg bars Age of first use: 42 Date of Last Use: 08/31/17 (self treating withdrawal sx) Family Disease History - Family Disease History Family Disease History: [place]: Father (, etoh), Mother (), Other: Brother (two - etoh), Sister (seven - three etoh/drugs) Admission Physical Exam [facility] - Vital Signs Vital Signs: Vital Signs - 24 hr 09/03/17 11:22 Temperature 98.6 F Pulse Rate 110 H Respiratory 18 Rate Blood Pressure 135/78 - Physical General Appearance: Yes: Nourished, Appropriately Dressed, Moderate Distress, Thin, Sweating, Anxious HEENTM: Yes: EOMI, Hearing grossly Normal, Normocephalic, Normal Voice, Pharynx Normal Respiratory: Yes: Normal Breath Sounds, No Respiratory Distress Neck: Yes: No masses,lesions,Nodules, Supple Breast: Yes: Breast Exam Deferred Cardiology: Yes: Regular Rhythm, Tachycardia Abdominal: Yes: Non Tender, Flat, Soft Genitourinary: Yes: Frequency Back: Yes: Normal Inspection Musculoskeletal: Yes: full range of Motion, Gait Steady Extremities: Yes: Normal Inspection, Non-Tender Neurological: Yes: Fully Oriented, Alert, Normal Mood/Affect, Normal Response Integumentary: Yes: Normal Color, Dry, Warm Lymphatic: Yes: Within Normal Limits - Diagnostic (1) Opioid dependence with withdrawal Current Visit: Yes Status: Chronic (2) Alcohol dependence with withdrawal Current Visit: Yes Status: Chronic Qualifiers: Complication of substance-induced condition: uncomplicated Qualified Code(s ): F10.230 - Alcohol dependence with withdrawal, uncomplicated (3) Nicotine dependence Current Visit: Yes Status: Acute Qualifiers: Nicotine product type: cigarettes Substance use status: in withdrawal Qualified Code(s): F17.213 - Nicotine dependence, cigarettes, with withdrawal (4) Weight loss Current Visit: Yes Status: Acute Cleared for Admission [facility] - Detox or Rehab [facility] Level of Care: Medically Managed Detox Regimen/Protocol: Methadone/Librium [facility] Breath Alcohol Content Breath Alcohol Content: 0.036 Urine Drug Screen - Results Drug Screen Negative: No Urine Drug Screen Results: OPI-Opiates
[2017-09-03] MEDS ORDERED: MAG HYDROX/AL HYDROX/SIMETH 30 ML UNIT-DOSE CUP PO PRN (12:46)
[2017-09-03] MEDS ORDERED: LOPERAMIDE HCL 2 MG CAPSULE PO PRN (12:46)
[2017-09-03] MEDS ORDERED: NICOTINE POLACRILEX 4 MG GUM BUC PRN (12:46)
[2017-09-03] MEDS ORDERED: MENTHOL/PHENOL 1 EACH UD MM PRN (12:46)
[2017-09-03] MEDS ORDERED: MAGNESIUM HYDROX 2400MG/30ML ORAL SUSPENSION 30 ML CUP PO PRN (12:46)
[2017-09-03] MEDS ORDERED: P-EPHED 60MG/TRIPROLIDI 2.5MG TABLET PO PRN (12:46)
[2017-09-03] MEDS ORDERED: MAGNESIUM CITRATE 300 ML BOTTLE PO PRN (12:46)
[2017-09-03] MEDS ORDERED: IBUPROFEN 400 MG TABLET (FP) PO PRN (12:46)
[2017-09-03] MEDS ORDERED: guaiFENesin/D-METHORPHAN HB 10 ML UNIT-DOSE CUPS PO PRN (12:46)
[2017-09-03] MEDS ORDERED: ACETAMINOPHEN 325 MG TABLET (FP) PO PRN (12:46)
[2017-09-03] MEDS ORDERED: chlordiazePOXIDE HCL 25 MG CAPSULE PO ONE (14:15)
[2017-09-03] MEDS ORDERED: METHADONE HCL 10 MG TABLET (FOR DETOX USE ONLY) PO ONE ×2 (14:15→23:00)
[2017-09-03] MEDS: hydrOXYzine PAMOATE 50 MG CAPSULE (FP) PO PRN (14:37)
[2017-09-03 17:00] LABS: URINE APPEARANCE CLEAR; URINE BILIRUBIN NEGATIVE (<2.0 mg/dL); URINE BLOOD NEGATIVE (NEGATIVE); URINE COLOR STRAW; URINE GLUCOSE (UA) NEGATIVE (NEGATIVE); URINE KETONE NEGATIVE (NEGATIVE); URINE LEUK ESTERASE NEGATIVE (NEGATIVE); URINE NITRITE NEGATIVE (NEGATIVE); URINE PROTEIN NEGATIVE (NEGATIVE); URINE UROBILINOGEN NEGATIVE mg/dL (0.2-1.0)
[2017-09-03] MEDS: chlordiazePOXIDE HCL 25 MG CAPSULE PO PRN (18:37)
[2017-09-03] MEDS ORDERED: MELATONIN 5 MG TABLETS PO PRN (22:00)
[2017-09-03] MEDS: chlordiazePOXIDE HCL 25 MG CAPSULE PO SCH (22:41)
[2017-09-03] MEDS: THIAMINE HCL 100 MG TABLET (FP) PO SCH (22:41)
[2017-09-04] MEDS: chlordiazePOXIDE HCL 25 MG CAPSULE PO SCH ×4 (05:32→22:28)
--- NOTE | 2017-09-04 06:47 | CONSULT ---
[facility] Psychiatric Consult - Data Date of interview: 09/04/17 Admission source: Self-referred Identifying data: Mr Dougherty is a 52 years old single male, unemployed on public assistance, domiciled seeking detox treatment for alcohol, opioid and benzodiazepine Substance Abuse History: Reports history of alcohol, heroin and xanax use. Refer to addiction counselor's note for further information Medical History: Significant for psoriasis. Smokes cigarettes 1ppd Psychiatric History: Patient denies history of previous psychiatric treatment. However he reports seeing a psychiatrist twice for anxiety. First time was last year at [facility] where he saw a psychiatrist once for and was not prescribed medication. The second time was at [facility] in [facility] where he is currently attending. Claims he did not follow up to be prescribed medication. Denies previous psychiatric hospitalization or suicidal attempt. At present, reports feeling anxious and sleeping poorly Physical/Sexual Abuse/Trauma History: Denies history of emotional, physical or sexual abuse as well as DV relationship Additional Comment: Reports history of a few previous misdemeanor arrests. No probation currently Mental Status Exam - Mental Status Exam Alert and Oriented to: Time, Place, Person Cognitive Function: Fair Patient Appearance: Disheveled Mood: Depressed Affect: Appropriate Patient Behavior: Cooperative Speech Pattern: Clear Voice Loudness: Normal, Limited Variation Thought Process: Goal Oriented Thought Disorder: Not Present Hallucinations: Denies Suicidal Ideation: Denies Homicidal Ideation: Denies Insight/Judgement: Poor Sleep: Poorly Appetite: Good Muscle strength/Tone: Normal Gait/Station: Normal Psychiatric Findings - Problem List ([place] 1, 2,3) (1) Substance induced mood disorder Current Visit: Yes Status: Acute (2) Substance-induced sleep disorder Current Visit: Yes Status: Acute (3) Alcohol dependence with withdrawal Current Visit: Yes Status: Chronic Qualifiers: Complication of substance-induced condition: uncomplicated Qualified Code(s ): F10.230 - Alcohol dependence with withdrawal, uncomplicated (4) Opioid dependence with withdrawal Current Visit: Yes Status: Acute (5) Nicotine dependence Current Visit: Yes Status: Chronic Qualifiers: Nicotine product type: cigarettes Substance use status: in withdrawal Qualified Code(s): F17.213 - Nicotine dependence, cigarettes, with withdrawal - Initial Treatment Plan Initial Treatment Plan: 1) Start Ambien 10 mg po HS prn for insomnia. 2) Continue inpatient detoxification
[2017-09-04] MEDS ORDERED: METHADONE HCL 10 MG TABLET (FOR DETOX USE ONLY) PO SCH (10:00)
[2017-09-04 10:35] LABS: HEMATOCRIT 43.5 % (35.4-49); HEMOGLOBIN 14.7 GM/dL (11.7-16.9); MCH 33.4 pg (25.7-33.7); MCHC 33.8 g/dl (32.0-35.9); MEAN CELL VOLUME 98.9 fl (80-96); MEAN PLT VOLUME 8.4 fl (7.5-11.1); PLATELET COUNT 212 K/MM3 (134-434); RDW 14.7 % (11.9-15.9); WHITE BLOOD COUNT 8.3 K/mm3 (4.0-10.0)
[2017-09-04] MEDS: PRENATAL VITAMINS W/ FOLIC ACID TABLET (FP) PO SCH (10:39)
[2017-09-04 10:43] LABS: ALBUMIN 3.8 g/dl (3.4-5.0); ANION GAP 4 (8-16); BLOOD UREA NITROGEN 17 mg/dL (7-18); CALCIUM 8.6 mg/dL (8.5-10.1); CHLORIDE 106 mmol/L (98-107); CO2 29 mmol/L (21-32); GLUCOSE,RANDOM 85 mg/dL (74-106); SODIUM 139 mmol/L (136-145)
[2017-09-04 10:46] LABS: ALK PHOS 49 U/L (45-117); BILIRUBIN,TOTAL 0.3 mg/dL (0.2-1.0); CREATININE 0.8 mg/dL (0.7-1.3); SGOT/AST 21 U/L (15-37); SGPT/ALT 25 U/L (12-78); TOT PROT 7.4 g/dl (6.4-8.2)
--- NOTE | 2017-09-04 13:05 | PN ---
S CIWA - CIWA Score Nausea/Vomitin-Mild Nausea/No Vomiting Muscle Tremors: 4-Moderate,w/Arms Extend Anxiety: 4-Mod. Anxious/Guarded Agitation: 4-Moderately Restless Paroxysmal Sweats: 1-Minimal Palms Moist Orientation: 0-Oriented Tacttile Disturbances: 0-None Auditory Disturbances: 0-None Visual Disturbances: 0-None Headache: 0-None Present CIWA-Ar Total Score: 14 BHS COWS - Scale Resting Pulse: 0= [place] 80 or Below Sweatin= Chills/Flushing Restless Observation: 1= Difficult to Sit Still Pupil Size: 0= Normal to Room Light Bone or Joint Aches: 2= Severe Diffuse Aches Runny Nose/ Eye Tearin= Nasal Congestion GI Upset > 30mins: 2= Nausea/Diarrhea Tremor Observation of Outstretched Hands: 2= Slight Tremor Visible Yawning Observation: 2= >3x During Session Anxiety or Irritability: 2=Irritable/Anxious Goose Flesh Skin: 0=Smooth Skin COWS Score: 13 S Progress Note (SOAP) Subjective: stuffy nose mild headache joint aches mild gi distress sweat tremor anxiety restlessness Objective: 09/04/17 13:09 Vital Signs Temperature 97.7 F 09/04/17 12:04 Pulse Rate 82 09/04/17 12:04 Respiratory Rate 20 09/04/17 12:04 Blood Pressure 111/68 09/04/17 12:04 O2 Sat by Pulse Oximetry (%) Laboratory Last Values WBC 8.3 K/mm3 (4.0-10.0) 09/04/17 07:30 RBC 4.40 M/mm3 (4.00-5.60) 09/04/17 07:30 Hgb 14.7 GM/dL (11.7-16.9) 09/04/17 07:30 Hct 43.5 % (35.4-49) 09/04/17 07:30 MCV 98.9 fl (80-96) H 09/04/17 07:30 MCH 33.4 pg (25.7-33.7) 09/04/17 07:30 MCHC 33.8 g/dl (32.0-35.9) 09/04/17 07:30 RDW 14.7 % (11.9-15.9) 09/04/17 07:30 Plt Count 212 K/MM3 (134-434) D 09/04/17 07:30 MPV 8.4 fl (7.5-11.1) 09/04/17 07:30 Sodium 139 mmol/L (136-145) 09/04/17 07:30 Potassium 4.0 mmol/L (3.5-5.1) 09/04/17 07:30 Chloride 106 mmol/L (98-107) D 09/04/17 07:30 Carbon Dioxide 29 mmol/L (21-32) D 09/04/17 07:30 Anion Gap 4 (8-16) L 09/04/17 07:30 BUN 17 mg/dL (7-18) D 09/04/17 07:30 Creatinine 0.8 mg/dL (0.7-1.3) 09/04/17 07:30 Creat Clearance w eGFR > 60 (>60) 09/04/17 07:30 Random Glucose 85 mg/dL (74-106) 09/04/17 07:30 Calcium 8.6 mg/dL (8.5-10.1) 09/04/17 07:30 Total Bilirubin 0.3 mg/dL (0.2-1.0) D 09/04/17 07:30 AST 21 U/L (15-37) D 09/04/17 07:30 ALT 25 U/L (12-78) D 09/04/17 07:30 Alkaline Phosphatase 49 U/L (45-117) D 09/04/17 07:30 Total Protein 7.4 g/dl (6.4-8.2) 09/04/17 07:30 Albumin 3.8 g/dl (3.4-5.0) 09/04/17 07:30 Urine Color Straw 09/03/17 14:20 Urine Appearance Clear 09/03/17 14:20 Urine pH 5.0 (5.0-8.0) 09/03/17 14:20 Ur Specific [place] 1.004 (1.001-1.035) 09/03/17 14:20 Urine Protein Negative (NEGATIVE) 09/03/17 14:20 Urine Glucose (UA) Negative (NEGATIVE) 09/03/17 14:20 Urine Ketones Negative (NEGATIVE) 09/03/17 14:20 Urine Blood Negative (NEGATIVE) 09/03/17 14:20 Urine Nitrite Negative (NEGATIVE) 09/03/17 14:20 Urine Bilirubin Negative (<2.0 mg/dL) 09/03/17 14:20 Urine Urobilinogen Negative mg/dL (0.2-1.0) 09/03/17 14:20 Ur Leukocyte Esterase Negative (NEGATIVE) 09/03/17 14:20 RPR Titer Nonreactive (NONREACTIVE) 09/04/17 07:30 lab noted Assessment: 09/04/17 13:10 withdrawal sx Plan: continue detox
[2017-09-04] MEDS: chlordiazePOXIDE HCL 25 MG CAPSULE PO PRN (13:13)
[2017-09-04] MEDS: hydrOXYzine PAMOATE 50 MG CAPSULE (FP) PO PRN (13:15)
[2017-09-04] MEDS: THIAMINE HCL 100 MG TABLET (FP) PO SCH (22:28)
[2017-09-04] MEDS: ZOLPIDEM TARTRATE 5 MG TABLET PO PRN (22:29)
[2017-09-05] MEDS: chlordiazePOXIDE HCL 25 MG CAPSULE PO SCH ×3 (05:52→17:58)
[2017-09-05] MEDS: METHADONE HCL 5 MG TABLET (FOR DETOX USE ONLY) PO SCH (10:34)
[2017-09-05] MEDS: PRENATAL VITAMINS W/ FOLIC ACID TABLET (FP) PO SCH (10:34)
--- NOTE | 2017-09-05 10:45 | PN ---
S CIWA - CIWA Score Nausea/Vomitin Muscle Tremors: 3 Anxiety: 3 Agitation: 3 Paroxysmal Sweats: 2 Orientation: 0-Oriented Tacttile Disturbances: 1-Very Mild Itch/Numbness Auditory Disturbances: 1-Very Mild Visual Disturbances: 0-None Headache: 2-Mild CIWA-Ar Total Score: 18 BHS COWS - Scale Resting Pulse: 0= [place] 80 or Below Sweatin= Chills/Flushing Restless Observation: 3= Extraneous Movement Pupil Size: 1= Pupils >than Normal Bone or Joint Aches: 2= Severe Diffuse Aches Runny Nose/ Eye Tearin= Runny Nose/Eyes GI Upset > 30mins: 2= Nausea/Diarrhea Tremor Observation of Outstretched Hands: 2= Slight Tremor Visible Yawning Observation: 1= 1-2x During Session Anxiety or Irritability: 2=Irritable/Anxious Goose Flesh Skin: 0=Smooth Skin COWS Score: 16 S Progress Note (SOAP) Subjective: ALERT,IRRITABLE,ANXIOUS,IRRITABLE,INTERRUPTED SLEEP,TREMOR,PAIN IN THE BODY AND BACK Objective: 09/05/17 10:43 Vital Signs Temperature 97.3 F L 09/05/17 10:14 Pulse Rate 79 09/05/17 10:14 Respiratory Rate 18 09/05/17 10:14 Blood Pressure 112/70 09/05/17 10:14 O2 Sat by Pulse Oximetry (%) Laboratory Last Values WBC 8.3 K/mm3 (4.0-10.0) 09/04/17 07:30 RBC 4.40 M/mm3 (4.00-5.60) 09/04/17 07:30 Hgb 14.7 GM/dL (11.7-16.9) 09/04/17 07:30 Hct 43.5 % (35.4-49) 09/04/17 07:30 MCV 98.9 fl (80-96) H 09/04/17 07:30 MCH 33.4 pg (25.7-33.7) 09/04/17 07:30 MCHC 33.8 g/dl (32.0-35.9) 09/04/17 07:30 RDW 14.7 % (11.9-15.9) 09/04/17 07:30 Plt Count 212 K/MM3 (134-434) D 09/04/17 07:30 MPV 8.4 fl (7.5-11.1) 09/04/17 07:30 Sodium 139 mmol/L (136-145) 09/04/17 07:30 Potassium 4.0 mmol/L (3.5-5.1) 09/04/17 07:30 Chloride 106 mmol/L (98-107) D 09/04/17 07:30 Carbon Dioxide 29 mmol/L (21-32) D 09/04/17 07:30 Anion Gap 4 (8-16) L 09/04/17 07:30 BUN 17 mg/dL (7-18) D 09/04/17 07:30 Creatinine 0.8 mg/dL (0.7-1.3) 09/04/17 07:30 Creat Clearance w eGFR > 60 (>60) 09/04/17 07:30 Random Glucose 85 mg/dL (74-106) 09/04/17 07:30 Calcium 8.6 mg/dL (8.5-10.1) 09/04/17 07:30 Total Bilirubin 0.3 mg/dL (0.2-1.0) D 09/04/17 07:30 AST 21 U/L (15-37) D 09/04/17 07:30 ALT 25 U/L (12-78) D 09/04/17 07:30 Alkaline Phosphatase 49 U/L (45-117) D 09/04/17 07:30 Total Protein 7.4 g/dl (6.4-8.2) 09/04/17 07:30 Albumin 3.8 g/dl (3.4-5.0) 09/04/17 07:30 Urine Color Straw 09/03/17 14:20 Urine Appearance Clear 09/03/17 14:20 Urine pH 5.0 (5.0-8.0) 09/03/17 14:20 Ur Specific [place] 1.004 (1.001-1.035) 09/03/17 14:20 Urine Protein Negative (NEGATIVE) 09/03/17 14:20 Urine Glucose (UA) Negative (NEGATIVE) 09/03/17 14:20 Urine Ketones Negative (NEGATIVE) 09/03/17 14:20 Urine Blood Negative (NEGATIVE) 09/03/17 14:20 Urine Nitrite Negative (NEGATIVE) 09/03/17 14:20 Urine Bilirubin Negative (<2.0 mg/dL) 09/03/17 14:20 Urine Urobilinogen Negative mg/dL (0.2-1.0) 09/03/17 14:20 Ur Leukocyte Esterase Negative (NEGATIVE) 09/03/17 14:20 RPR Titer Nonreactive (NONREACTIVE) 09/04/17 07:30 Assessment: 09/05/17 10:44 WITHDRAWAL SYMPTOM Plan: CONTINUE DETOX
--- NOTE | 2017-09-05 12:41 | EKG ---
Test Reason : Blood Pressure : / mmHG Vent. Rate : 094 BPM Atrial Rate : 094 BPM P-R Int : 120 ms QRS Dur : 078 ms QT Int : 330 ms P-R-T Axes : 053 075 055 degrees QTc Int : 412 ms NORMAL SINUS RHYTHM NORMAL ECG WHEN COMPARED WITH ECG OF 24-FEB-2017 15:57, NO SIGNIFICANT CHANGE WAS FOUND Confirmed by DUARTE PORTILLO MD ([id number]) on 09/05/2017 12:41:04 PM Referred By: Confirmed By:DUARTE PORTILLO MD
[2017-09-05] MEDS: chlordiazePOXIDE HCL 25 MG CAPSULE PO PRN (15:40)
[2017-09-05] MEDS: THIAMINE HCL 100 MG TABLET (FP) PO SCH (22:24)
[2017-09-05] MEDS: ZOLPIDEM TARTRATE 5 MG TABLET PO PRN (22:25)
[2017-09-05] MEDS: chlordiazePOXIDE 5 MG CAPSULE PO SCH (22:25)
[2017-09-06] MEDS: chlordiazePOXIDE 5 MG CAPSULE PO SCH ×3 (05:22→18:04)
[2017-09-06] MEDS: METHADONE HCL 5 MG TABLET (FOR DETOX USE ONLY) PO SCH (11:05)
[2017-09-06] MEDS: PRENATAL VITAMINS W/ FOLIC ACID TABLET (FP) PO SCH (11:05)
--- NOTE | 2017-09-06 11:24 | PN ---
BHS Progress Note (SOAP) Subjective: ALERT,IRRITABLE,ANXIOUS,INTERRUPTED SLEEP,PAIN IN THE BODY AND BACK Objective: 09/06/17 11:23 Vital Signs Temperature 97 F L 09/06/17 10:09 Pulse Rate 80 09/06/17 10:09 Respiratory Rate 20 09/06/17 10:09 Blood Pressure 102/61 09/06/17 10:09 O2 Sat by Pulse Oximetry (%) Assessment: 09/06/17 11:23 WITHDRAWAL SYMPTOM Plan: CONTINUE DETOX
[2017-09-06] MEDS: CYCLOBENZAPRINE HCL 10 MG TABLET (FP) PO PRN (18:07)
[2017-09-06] MEDS: chlordiazePOXIDE HCL 10 MG CAPSULE PO SCH (22:28)
[2017-09-06] MEDS: cloNIDine HCL 0.1 MG TABLET PO SCH (22:28)
[2017-09-06] MEDS: ZOLPIDEM TARTRATE 5 MG TABLET PO PRN (22:29)
[2017-09-06] MEDS: THIAMINE HCL 100 MG TABLET (FP) PO SCH (22:51)
[2017-09-07] MEDS: chlordiazePOXIDE HCL 10 MG CAPSULE PO SCH ×3 (05:38→17:35)
[2017-09-07] MEDS: CYCLOBENZAPRINE HCL 10 MG TABLET (FP) PO PRN ×3 (05:40→22:44)
[2017-09-07] MEDS ORDERED: METHADONE HCL 10 MG TABLET (FOR DETOX USE ONLY) PO SCH (10:00)
[2017-09-07] MEDS: PRENATAL VITAMINS W/ FOLIC ACID TABLET (FP) PO SCH (10:36)
[2017-09-07] MEDS: cloNIDine HCL 0.1 MG TABLET PO SCH ×2 (10:38→22:44)
--- NOTE | 2017-09-07 11:21 | PN ---
S Progress Note (SOAP) Subjective: ALERT,IRRITABLE,ANXIOUS,INTERRUPTED SLEEP Objective: 09/07/17 11:20 Vital Signs Temperature 97.7 F 09/07/17 10:25 Pulse Rate 85 09/07/17 10:25 Respiratory Rate 18 09/07/17 10:25 Blood Pressure 102/54 09/07/17 10:25 O2 Sat by Pulse Oximetry (%) Assessment: 09/07/17 11:21 WITHDRAWAL SYMPTOM Plan: CONTINUE DETOX,DISCHARGE IN AM
[2017-09-07] MEDS ORDERED: HALOPERIDOL 1 MG TABLET (FP) PO STA (11:57)
[2017-09-07] MEDS ORDERED: diphenhydrAMINE HCL 50 MG CAPSULE PO STA (11:58)
[2017-09-07] MEDS ORDERED: HALOPERIDOL 1 MG TABLET (FP) PO PRN (12:01)
--- NOTE | 2017-09-07 12:06 | PN ---
Psychiatric Progress Note Vital Signs: Vital Signs Period Temp Pulse Resp BP Sys/[place] Pulse Ox Last 24 Hr 95.7 F-97.7 F 76-96 16-19 95-110/54-68 Date of Session: 09/07/17 Chief Complaint:: anxiety HPI: Patient reports anxiety and nervousness, reports using prior to admission Klonopin for anxiety Current Medications: Active Medications Generic Name Dose Route Start Last Admin Trade Name Freq PRN Reason Stop Dose Admin Acetaminophen 650 mg 09/03/17 12:46 Tylenol - PO Q4H PRN FEVER Al Hydroxide/Mg Hydroxide 30 ml 09/03/17 12:46 Mylanta Oral Suspension - PO Q6H PRN DYSPEPSIA Chlordiazepoxide HCl 10 mg 09/06/17 23:00 09/07/17 10:37 Librium - PO 09/07/17 17:01 10 mg [id number] JOHANA Administration Clonidine 0.1 mg 09/06/17 22:00 09/07/17 10:38 Catapres - PO Not Given BID JOHANA Cyclobenzaprine HCl 10 mg 09/06/17 11:10 09/07/17 05:40 Flexeril - PO 10 mg TID PRN Administration MUSCLE SPASMS Diphenhydramine HCl 50 mg 09/07/17 11:58 Benadryl - PO 09/07/17 11:59 ONCE STA Eucalyptus/Menthol/Phenol/Sorbitol 1 each 09/03/17 12:46 Cepastat Lozenge - MM Q4H PRN SORE THROAT Guaifenesin 10 ml 09/03/17 12:46 Robitussin Dm - PO Q6H PRN COUGH Haloperidol 2 mg 09/07/17 11:57 Haldol - PO 09/07/17 11:58 ONCE STA Hydroxyzine Pamoate 50 mg 09/03/17 12:46 09/04/17 13:15 Vistaril - PO 50 mg Q4H PRN Administration AGITATION Ibuprofen 400 mg 09/03/17 12:46 Motrin - PO Q6H PRN PAIN LEVEL 4-6 Loperamide HCl 4 mg 09/03/17 12:46 Imodium - PO Q6H PRN DIARRHEA Magnesium Citrate 300 ml 09/03/17 12:46 Citroma - PO Q48H PRN CONSTIPATION Magnesium Hydroxide 30 ml 09/03/17 12:46 Milk Of Magnesia - PO DAILY PRN CONSTIPATION Melatonin 5 mg 09/03/17 22:00 09/05/17 22:24 Melatonin PO 5 mg HS PRN Administration INSOMNIA Methadone HCl 5 mg 09/08/17 06:00 Dolophine - PO 09/08/17 06:01 DAILY@0600 JOHANA Nicotine Polacrilex 4 mg 09/03/17 12:46 Nicorette Gum - BUC Q2H PRN NICOTINE REPLACEMENT RX Multivit/Folic Acid/Iron 1 tab 09/04/17 10:00 09/07/17 10:36 Vitamins (Sjr) - PO 1 tab DAILY JOHANA Administration Pseudoephedrine/Triprolidine 1 combo 09/03/17 12:46 Actifed - PO TID PRN NASAL CONGESTION Selenium Sulfide 1 applic 09/07/17 11:30 Selsun 2.5% Lotion - TP 09/14/17 11:24 DAILY JOHANA Thiamine HCl 100 mg 09/03/17 22:00 09/06/17 22:51 Vitamin B1 - PO 100 mg HS JOHANA Administration Zolpidem Tartrate 10 mg 09/04/17 09:11 09/06/17 22:29 Ambien - PO 10 mg HS PRN Administration INSOMNIA Medication(s) Change(s): Haldol 2mg pop stat. Benadryl 50mg po stat. Haldol 1mg po prn q4 for anxiety Provider note:: Patient agrees to take Haldol 1mg p[o prn q4 for anxiety and agitation Mental Status Exam - Mental Status Exam Alert and Oriented to: Person Cognitive Function: Fair Patient Appearance: Well Groomed Mood: Anxious Affect: Mood Congruent Patient Behavior: Cooperative Speech Pattern: Appropriate Voice Loudness: Normal Thought Process: Goal Oriented Thought Disorder: Being Controlled Hallucinations: Denies Suicidal Ideation: Denies Homicidal Ideation: Denies Insight/Judgement: Fair Sleep: Difficulty falling asleep Appetite: Weight loss Muscle strength/Tone: Normal Gait/Station: Normal Additional Comments: Haldol 2mg pop stat. Benadryl 50mg po stat. Haldol 1mg po prn q4 for anxiety Psychiatric Treatment Plan - Problem List (1) Drug-induced mood disorder Current Visit: Yes (2) Opioid dependence with withdrawal Current Visit: Yes (3) Substance induced mood disorder Current Visit: Yes (4) Substance-induced sleep disorder Current Visit: Yes (5) Alcohol dependence with withdrawal Current Visit: Yes Qualifiers: Complication of substance-induced condition: uncomplicated Qualified Code(s ): F10.230 - Alcohol dependence with withdrawal, uncomplicated (6) Nicotine dependence Current Visit: Yes Qualifiers: Nicotine product type: cigarettes Substance use status: in withdrawal Qualified Code(s): F17.213 - Nicotine dependence, cigarettes, with withdrawal Initial treatment plan: Haldol 2mg pop stat. Benadryl 50mg po stat. Haldol 1mg po prn q4 for anxiety
[2017-09-07] MEDS: SELENIUM SULFIDE 2.5% LOTION 4 OZ. TP SCH (13:16)
[2017-09-07] MEDS: hydrOXYzine PAMOATE 50 MG CAPSULE (FP) PO PRN (13:20)
[2017-09-07] MEDS: THIAMINE HCL 100 MG TABLET (FP) PO SCH (22:44)
[2017-09-07] MEDS: ZOLPIDEM TARTRATE 5 MG TABLET PO PRN (22:46)
[2017-09-08] MEDS: CYCLOBENZAPRINE HCL 10 MG TABLET (FP) PO PRN (05:29)
[2017-09-08] MEDS ORDERED: METHADONE HCL 5 MG TABLET (FOR DETOX USE ONLY) PO SCH (06:00)
--- NOTE | 2017-09-08 08:16 | PN ---
BHS Progress Note (SOAP) Subjective: ALERT,NO COMPLAINT Objective: 09/08/17 08:14 Vital Signs Temperature 95.7 F L 09/08/17 06:55 Pulse Rate 91 H 09/08/17 06:55 Respiratory Rate 17 09/08/17 06:55 Blood Pressure 99/68 09/08/17 06:55 O2 Sat by Pulse Oximetry (%) Assessment: 09/08/17 08:14 DETOX COMPLETED,NO WITHDRAWAL SYMPT Plan: DISCHARGE TODAY,FOLLOW UP WITH AFTER CARE PROGRAM ARRANGEMENT
--- NOTE | 2017-09-08 08:21 | DS ---
[facility] Detox Discharge Summary Admission Date: 09/03/17 Discharge Date: 09/08/17 - History Present History: Alcohol Dependence, Opioid Dependence Additional Comments: FOLLOW UP WITH AFTER CARE PROGRAM ARRANGEMENT Pertinent Past History: NICOTINE DEPENDENCE WEIGHT LOSS - Physical Exam Results Vital Signs: Vital Signs Temperature 95.7 F L 09/08/17 06:55 Pulse Rate 91 H 09/08/17 06:55 Respiratory Rate 17 09/08/17 06:55 Blood Pressure 99/68 09/08/17 06:55 O2 Sat by Pulse Oximetry (%) Pertinent Admission Physical Exam Findings: WITHDRAWAL SIGNS AND SYMPTOM Vital Signs Temperature 95.7 F L 09/08/17 06:55 Pulse Rate 91 H 09/08/17 06:55 Respiratory Rate 17 09/08/17 06:55 Blood Pressure 99/68 09/08/17 06:55 O2 Sat by Pulse Oximetry (%) Laboratory Last Values WBC 8.3 K/mm3 (4.0-10.0) 09/04/17 07:30 RBC 4.40 M/mm3 (4.00-5.60) 09/04/17 07:30 Hgb 14.7 GM/dL (11.7-16.9) 09/04/17 07:30 Hct 43.5 % (35.4-49) 09/04/17 07:30 MCV 98.9 fl (80-96) H 09/04/17 07:30 MCH 33.4 pg (25.7-33.7) 09/04/17 07:30 MCHC 33.8 g/dl (32.0-35.9) 09/04/17 07:30 RDW 14.7 % (11.9-15.9) 09/04/17 07:30 Plt Count 212 K/MM3 (134-434) D 09/04/17 07:30 MPV 8.4 fl (7.5-11.1) 09/04/17 07:30 Sodium 139 mmol/L (136-145) 09/04/17 07:30 Potassium 4.0 mmol/L (3.5-5.1) 09/04/17 07:30 Chloride 106 mmol/L (98-107) D 09/04/17 07:30 Carbon Dioxide 29 mmol/L (21-32) D 09/04/17 07:30 Anion Gap 4 (8-16) L 09/04/17 07:30 BUN 17 mg/dL (7-18) D 09/04/17 07:30 Creatinine 0.8 mg/dL (0.7-1.3) 09/04/17 07:30 Creat Clearance w eGFR > 60 (>60) 09/04/17 07:30 Random Glucose 85 mg/dL (74-106) 09/04/17 07:30 Calcium 8.6 mg/dL (8.5-10.1) 09/04/17 07:30 Total Bilirubin 0.3 mg/dL (0.2-1.0) D 09/04/17 07:30 AST 21 U/L (15-37) D 09/04/17 07:30 ALT 25 U/L (12-78) D 09/04/17 07:30 Alkaline Phosphatase 49 U/L (45-117) D 09/04/17 07:30 Total Protein 7.4 g/dl (6.4-8.2) 09/04/17 07:30 Albumin 3.8 g/dl (3.4-5.0) 09/04/17 07:30 Urine Color Straw 09/03/17 14:20 Urine Appearance Clear 09/03/17 14:20 Urine pH 5.0 (5.0-8.0) 09/03/17 14:20 Ur Specific [place] 1.004 (1.001-1.035) 09/03/17 14:20 Urine Protein Negative (NEGATIVE) 09/03/17 14:20 Urine Glucose (UA) Negative (NEGATIVE) 09/03/17 14:20 Urine Ketones Negative (NEGATIVE) 09/03/17 14:20 Urine Blood Negative (NEGATIVE) 09/03/17 14:20 Urine Nitrite Negative (NEGATIVE) 09/03/17 14:20 Urine Bilirubin Negative (<2.0 mg/dL) 09/03/17 14:20 Urine Urobilinogen Negative mg/dL (0.2-1.0) 09/03/17 14:20 Ur Leukocyte Esterase Negative (NEGATIVE) 09/03/17 14:20 RPR Titer Nonreactive (NONREACTIVE) 09/04/17 07:30 - Treatment Hospital Course: Detox Protocol Followed, Detoxed Safely, Responded well, Discharged Condition Good, Rehab Referral Accepted Patient has Accepted a Rehab Referral to: [facility] - Medication Discharge Medications: Ambulatory Orders NK [No Known Home Medication] 04/02/16 - Diagnosis (1) Opioid dependence with withdrawal Current Visit: Yes Status: Acute (2) Weight loss Current Visit: Yes Status: Acute (3) Alcohol dependence with withdrawal Current Visit: Yes Status: Chronic Qualifiers: Complication of substance-induced condition: uncomplicated Qualified Code(s ): F10.230 - Alcohol dependence with withdrawal, uncomplicated (4) Nicotine dependence Current Visit: Yes Status: Chronic Qualifiers: Nicotine product type: cigarettes Substance use status: in withdrawal Qualified Code(s): F17.213 - Nicotine dependence, cigarettes, with withdrawal (5) Substance induced mood disorder Current Visit: Yes Status: Acute (6) Substance-induced sleep disorder Current Visit: Yes Status: Acute - AMA Did Patient Leave Against Medical Advice: No
[2017-09-08 09:47] VITALS: BP 94/61; PULSE 92; TEMP 98.4
[2017-09-08] MEDS: SELENIUM SULFIDE 2.5% LOTION 4 OZ. TP SCH (10:40)
[2017-09-08] MEDS: PRENATAL VITAMINS W/ FOLIC ACID TABLET (FP) PO SCH (10:40)
[2017-09-08] MEDS: cloNIDine HCL 0.1 MG TABLET PO SCH ×2 (10:40→10:47)
[2017-09-08] MEDS: hydrOXYzine PAMOATE 50 MG CAPSULE (FP) PO PRN (10:41)
== END 2017-09-08 12:16 | disposition other institution (70) | DRG 773 ==
LOC: YASAS 11:14 → Y6N 13:59
PROVIDERS: ADMIT Internal Medicine; ATTEND Internal Medicine
PROC: HZ2ZZZZ Detoxification Services for Substance Abuse Treatment (ICD-10-PCS; principal; 2017-09-03)
DX: F11.23 Opioid dependence with withdrawal (principal); F10.230 Alcohol dependence with withdrawal, uncomplicated; F17.210 Nicotine dependence, cigarettes, uncomplicated; F19.24 Other psychoactive substance dependence with psychoactive substance-induced mood disorder; F19.282 Other psychoactive substance dependence with psychoactive substance-induced sleep disorder; R63.4 Abnormal weight loss; Z68.20 Body mass index [BMI] 20.0-20.9, adult
CPT/HCPCS: 36415; 80053; 81003; 85027; 86593; 93005; 93010; J0735

== ENCOUNTER 2017-09-08 12:46 | Inpatient (IN) | payer OTHER ==
--- NOTE | 2017-09-08 14:44 | HP ---
[facility] Rehab Assess/Revision - Admission History Admitted to Rehab from: [facility] [place] Date of Admission to Rehab: 09/08/17 - Findings Detox History & Physical reviewed: Yes Concur with findings: Yes Comments/Additional Findings: transferred from detox to rehab admission as per protocol
[2017-09-08] MEDS ORDERED: ACETAMINOPHEN 325 MG TABLET (FP) PO PRN (14:45)
[2017-09-08] MEDS ORDERED: guaiFENesin/D-METHORPHAN HB 10 ML UNIT-DOSE CUPS PO PRN (14:45)
[2017-09-08] MEDS ORDERED: NICOTINE POLACRILEX 4 MG GUM BUC PRN (14:45)
[2017-09-08] MEDS ORDERED: LOPERAMIDE HCL 2 MG CAPSULE PO PRN (14:45)
[2017-09-08] MEDS ORDERED: hydrOXYzine PAMOATE 25 MG CAPSULE (FP) PO PRN (14:45)
[2017-09-08] MEDS ORDERED: MAG HYDROX/AL HYDROX/SIMETH 30 ML UNIT-DOSE CUP PO PRN (14:45)
[2017-09-08] MEDS ORDERED: IBUPROFEN 400 MG TABLET (FP) PO PRN (14:45)
[2017-09-08] MEDS ORDERED: MAGNESIUM HYDROX 2400MG/30ML ORAL SUSPENSION 30 ML CUP PO PRN (14:45)
[2017-09-08] MEDS ORDERED: MAGNESIUM CITRATE 300 ML BOTTLE PO PRN (14:45)
[2017-09-08] MEDS ORDERED: P-EPHED 60MG/TRIPROLIDI 2.5MG TABLET PO PRN (14:45)
--- NOTE | 2017-09-08 14:45 | HP ---
Inpatient Rehab Admission - Initial Determination Are CD services needed?: Yes Free of communicable disease: Yes Not in need of hospitalization: Yes - Rehab Admission Criteria Previous failed treatment: Yes Poor recovery environment: Yes Comorbidities: Yes Lacks judgement: No Patient is meeting Inpatient Rehab admission criteria:: Yes
--- NOTE | 2017-09-08 15:21 | HP ---
Psychiatrist Admission - Data Date of interview: 09/08/17 Admission source: 6N Identifying data: This is the first 5n inpatient rehabilitation admission for this 52 year old single male, he is unemployed and supported on PA, residing alone in [facility]. Medical History: smokes cigarettes 1 PPD. Psychiatric History: Reports no history of psychiatric hospitalizations , states saw the psychiatrist twice , first time at [facility] to address anxiety and depression, no medications recommended, second time at [facility] in [facility], reports while in one of the detox. [place] was put on Gabapentin, he continued medication one month and reports he did not feel any diffrence. Physical/Sexual Abuse/Trauma History: Denies history of sexual,physical and verbal abuse. Allergies/Adverse Reactions: Allergies Allergy/AdvReac Type Severity Reaction Status Date / Time No Known Allergies Allergy Verified 09/03/17 13:22 Date of last physical exam: 09/04/17 Concur with the findings of this exam: Yes - Substance Abuse/Tx History Hx Alcohol Use: Yes Substance Use Type: Alcohol (24 oz beer daily ), Heroin (6-7 bags daily.), Tranquilizers (xanax 1-2 times a week , up to 4 mg mg ) Hx Substance Use Treatment: Yes ([facility], [facility] ) Mental Status Exam - Mental Status Exam Alert and Oriented to: Time, Place, Person Cognitive Function: Good Patient Appearance: Well Groomed Mood: Sad, Anxious Affect: Appropriate Patient Behavior: Appropriate, Cooperative Speech Pattern: Clear, Appropriate Voice Loudness: Normal Thought Process: Intact, Goal Oriented Thought Disorder: Not Present Hallucinations: Denies Suicidal Ideation: Denies Homicidal Ideation: Denies Insight/Judgement: Fair Sleep: Fair Appetite: Fair Muscle strength/Tone: Normal Gait/Station: Normal Psychiatric Findings - Problem List ([place] 1, 2,3) (1) Opioid dependence Current Visit: Yes Status: Acute (2) Alcohol dependence Current Visit: Yes Status: Acute (3) Sedative hypnotic or anxiolytic dependence Current Visit: Yes Status: Acute (4) Substance induced mood disorder Current Visit: No Status: Acute (5) Nicotine dependence Current Visit: No Status: Chronic Qualifiers: Nicotine product type: cigarettes Substance use status: in withdrawal Qualified Code(s): F17.213 - Nicotine dependence, cigarettes, with withdrawal (6) Substance-induced anxiety disorder Current Visit: Yes Status: Acute - Initial Treatment Plan Initial Treatment Plan: indications and properties of Buspar discussed with the patient , he agreed to start treatment, will start with 5 mg potid, monitor progress as needed.
[2017-09-08] MEDS: THIAMINE HCL 100 MG TABLET (FP) PO SCH (21:50)
[2017-09-08] MEDS: busPIRone HCL 5 MG TABLET PO SCH (21:50)
[2017-09-08] MEDS: hydrOXYzine PAMOATE 50 MG CAPSULE (FP) PO PRN (21:51)
[2017-09-08] MEDS ORDERED: MELATONIN 5 MG TABLETS PO PRN (22:00)
[2017-09-08] MEDS: CYCLOBENZAPRINE HCL 5 MG TABLET PO PRN (22:14)
[2017-09-09] MEDS: busPIRone HCL 5 MG TABLET PO SCH ×3 (06:34→21:34)
[2017-09-09] MEDS: CYCLOBENZAPRINE HCL 5 MG TABLET PO PRN ×3 (06:35→21:34)
[2017-09-09] MEDS: MENTHOL/PHENOL 1 EACH UD MM PRN (06:53)
[2017-09-09] MEDS: NICOTINE 21 MG/24 HOURS TOPICAL PATCH TD SCH (09:52)
[2017-09-09] MEDS: PRENATAL VITAMINS W/ FOLIC ACID TABLET (FP) PO SCH (09:52)
[2017-09-09] MEDS: THIAMINE HCL 100 MG TABLET (FP) PO SCH (21:34)
[2017-09-09] MEDS: hydrOXYzine PAMOATE 50 MG CAPSULE (FP) PO PRN (21:34)
[2017-09-10] MEDS: busPIRone HCL 5 MG TABLET PO SCH ×3 (06:12→21:29)
[2017-09-10] MEDS: CYCLOBENZAPRINE HCL 5 MG TABLET PO PRN ×3 (06:13→21:30)
[2017-09-10] MEDS: PRENATAL VITAMINS W/ FOLIC ACID TABLET (FP) PO SCH (09:55)
[2017-09-10] MEDS: NICOTINE 21 MG/24 HOURS TOPICAL PATCH TD SCH (09:55)
[2017-09-10] MEDS: MENTHOL/PHENOL 1 EACH UD MM PRN ×2 (09:56→14:08)
[2017-09-10] MEDS: THIAMINE HCL 100 MG TABLET (FP) PO SCH (21:29)
[2017-09-11] MEDS: busPIRone HCL 5 MG TABLET PO SCH ×3 (05:54→21:33)
[2017-09-11] MEDS: CYCLOBENZAPRINE HCL 5 MG TABLET PO PRN (05:54)
[2017-09-11] MEDS: PRENATAL VITAMINS W/ FOLIC ACID TABLET (FP) PO SCH (09:55)
[2017-09-11] MEDS: NICOTINE 21 MG/24 HOURS TOPICAL PATCH TD SCH (09:57)
[2017-09-11] MEDS ORDERED: ONDANSETRON *ODT* 4 MG TABLET SL ONE (10:47)
[2017-09-11] MEDS ORDERED: diphenhydrAMINE HCL 25 MG CAPSULE (FP) PO PRN (10:48)
[2017-09-11] MEDS: PANTOPRAZOLE 40 MG TABLET (FP) PO SCH (12:14)
[2017-09-11] MEDS: NAPROXEN 500 MG TABLET (FP) PO SCH ×2 (12:14→21:31)
[2017-09-11] MEDS: cloNIDine HCL 0.1 MG TABLET PO SCH ×2 (12:14→21:32)
[2017-09-11] MEDS: GABAPENTIN 100 MG CAPSULE (FP) PO SCH ×2 (14:41→21:32)
[2017-09-11] MEDS: CYCLOBENZAPRINE HCL 10 MG TABLET (FP) PO SCH ×2 (14:42→21:31)
[2017-09-11] MEDS: THIAMINE HCL 100 MG TABLET (FP) PO SCH (21:32)
[2017-09-12] MEDS: busPIRone HCL 5 MG TABLET PO SCH (06:02)
[2017-09-12] MEDS: CYCLOBENZAPRINE HCL 10 MG TABLET (FP) PO SCH (06:02)
[2017-09-12] MEDS: GABAPENTIN 100 MG CAPSULE (FP) PO SCH (06:02)
[2017-09-12 06:55] VITALS: BP 104/68; PULSE 88; TEMP 97.7
[2017-09-12] MEDS: cloNIDine HCL 0.1 MG TABLET PO SCH (09:47)
[2017-09-12] MEDS: NICOTINE 21 MG/24 HOURS TOPICAL PATCH TD SCH (09:48)
[2017-09-12] MEDS: NAPROXEN 500 MG TABLET (FP) PO SCH (09:48)
[2017-09-12] MEDS: PRENATAL VITAMINS W/ FOLIC ACID TABLET (FP) PO SCH (09:48)
[2017-09-12] MEDS: PANTOPRAZOLE 40 MG TABLET (FP) PO SCH (09:48)
--- NOTE | 2017-09-12 11:17 | PN ---
[facility] Progress Note Note: Met with patient today as he is requesting to sign out AMA. Discussed the risk factors associated with signing out AMA including overdose risks and . Encouraged to remain in treatment but adamant about leaving. Verbalized an understanding of the risks. Encouraged to return for treatment if relapses.
--- NOTE | 2017-09-12 14:28 | PN ---
Psychiatric Progress Note Vital Signs: Vital Signs Period Temp Pulse Resp BP Sys/[place] Pulse Ox Last 24 Hr 97.7 F 88-91 18-20 102-104/67-68 Date of Session: 09/12/17 Chief Complaint:: leaving ama HPI: patient is a 52 year old male with history of alcohol, opioid, sedative- hypnotic , nicotine dependence comorbid substance induced anxiety disorder. Current Side Effect: No Lab tests ordered: No Lab tests reviewed: Yes Provider note:: Patient reports that he is leaving treatment AMA, met with the patient to explore reasons for terminating treatment at this time, patient reported that he has to take of care of his personal issues which needed his presents "or I am losing my apartment", patient was encouraged to focus in his recovery and stay in treatment, but adamant to leave, denies suicidal and homicildal thoughts, will f/u at [facility], scripts for his current medications provided for 30 days, stable for AMA. Total face to face time:: 15 Mental Status Exam - Mental Status Exam Alert and Oriented to: Time, Place, Person Cognitive Function: Grossly Intact Patient Appearance: Well Groomed Affect: Appropriate, Mood Congruent Patient Behavior: Appropriate, Cooperative Speech Pattern: Clear, Appropriate Voice Loudness: Normal Thought Process: Intact, Goal Oriented Thought Disorder: Not Present Hallucinations: Denies Suicidal Ideation: Denies Homicidal Ideation: Denies Insight/Judgement: Fair Sleep: Well Appetite: Good Muscle strength/Tone: Normal Gait/Station: Normal Psychiatric Treatment Plan - Problem List (5) Nicotine dependence Qualifiers: Nicotine product type: cigarettes Substance use status: in withdrawal Qualified Code(s): F17.213 - Nicotine dependence, cigarettes, with withdrawal
== END 2017-09-12 11:45 | disposition left against medical advice (07) | DRG 770 ==
LOC: YASAS 12:46 → Y5N 12:52
PROVIDERS: ADMIT Psychiatry & Neurology Psychiatry; ATTEND Psychiatry & Neurology Psychiatry
PROC: HZ42ZZZ Group Counseling for Substance Abuse Treatment, Cognitive-Behavioral (ICD-10-PCS; principal; 2017-09-08)
DX: F11.20 Opioid dependence, uncomplicated (principal); F13.20 Sedative, hypnotic or anxiolytic dependence, uncomplicated; F10.20 Alcohol dependence, uncomplicated; F17.210 Nicotine dependence, cigarettes, uncomplicated; F19.280 Other psychoactive substance dependence with psychoactive substance-induced anxiety disorder; F19.24 Other psychoactive substance dependence with psychoactive substance-induced mood disorder
CPT/HCPCS: J0735; Q0162